=== PATIENT | male | born 1935 | race Caucasian/White ===

== ENCOUNTER → 2016-06-22 10:56 | Outpatient (CLI) | payer MEDICARE, BC ==
[2015-06-07 07:26] VITALS: BMI 36.5
[~2016-06-22 10:56] MED LIST: ATIVAN0.5 MG OR; BETAPACE 120 M120 MG PO; CARDURA8 MG PO; DILANTIN100 MG PO; FERROUS SULFAT325 MG PO; FISH OIL 1,0001 CA1 PO; GLIMEPIRIDE1 MG PO; GLUCOPHAGE1000 MG PO; GLUCOPHAGE850 MG PO; HYDROCHLOROTH12.5 M1 PO; LAMICTAL XR200 MG PO; LOTENSIN40 MG PO; NORCO 10/325 TA1 TA1 OR; NORCO 10/325 TA1 TA1 PO; NORVASC10 MG PO; OXYCONTIN10 MG PO; PLAVIX75 MG PO; PRAVACHOL40 MG PO; PRESERVISION AR1 CAP PO; PRILOSEC20 MG PO; REGLAN10 MG PO; VITAMIN B-121000 MC3 GT; VITAMIN B-121000 MCG PO; XARELTO10 MG PO
== END | disposition home or self-care (01) ==
LOC: D.CT 10:56
DX: S76.191A Other specified injury of right quadriceps muscle, fascia and tendon, initial encounter (principal)

== ENCOUNTER → 2017-01-03 08:21 | Outpatient (CLI) | payer MEDICARE, BC ==
[2015-06-07 07:26] VITALS: BMI 36.5
[~2017-01-03 08:21] MED LIST changes: +FERRETTS324 MG PO; +GLIMEPIRIDE4 MG PO; +LAMICTAL ODT200 MG PO; +PERCOCET 10/3251 TA1 PO; +PROTONIX40 MG PO; +XARELTO15 MG PO
== END | disposition home or self-care (01) ==
LOC: D.RAD 08:21
DX: M25.512 Pain in left shoulder (principal)

== ENCOUNTER 2017-01-21 05:28 | Day surgery (SDC) | payer MEDICARE, BC ==
[2017-01-18 12:58] LABS: HEMOGLOBIN 14.4 g/dL (13.5-17.5); MCH 30.1 pg (26.0-34.0); MCHC 35.1 g/dL (31.0-37.0); MCV 85.8 fL (80.0-100.0); MEAN PLATELET VOLUME 9.6 fL (7.4-10.4); RBC 4.78 10x6/uL (4.20-6.10); RDW 13.5 % (11.5-14.5); WBC 5.5 10x3/uL (4.8-10.8)
[2017-01-18 13:00] LABS: ANION GAP 9.5 mmol/L (8-16); CALCIUM 9.1 mg/dL (8.5-10.1); CARBON DIOXIDE 30.4 mmol/L (21.0-32.0); CREATININE - SERUM 1.4 mg/dL (0.6-1.3); POTASSIUM - SERUM 3.9 mmol/L (3.5-5.1)
[~2017-01-21 05:28] MED LIST changes: -FERRETTS324 MG PO; -GLIMEPIRIDE4 MG PO; -LAMICTAL ODT200 MG PO; -PERCOCET 10/3251 TA1 PO; -PROTONIX40 MG PO
[2017-01-21] MEDS ORDERED: PERCOCET 10/3251 TA1 PO ×2 (07:32→13:58)
[2017-01-21] MEDS ORDERED: HYDROCHLOROTH12.5 M1 PO (10:03)
[2017-01-21] MEDS ORDERED: LOTENSIN40 MG PO (10:04)
[2017-01-21] MEDS ORDERED: CARDURA8 MG PO (10:04)
[2017-01-21] MEDS ORDERED: NORVASC10 MG PO (10:04)
[2017-01-21] MEDS ORDERED: FISH OIL 1,0001 CA1 PO (10:05)
[2017-01-21] MEDS ORDERED: FERRETTS324 MG PO (10:05)
[2017-01-21] MEDS ORDERED: GLUCOPHAGE1000 MG PO (10:06)
[2017-01-21] MEDS ORDERED: GLIMEPIRIDE4 MG PO (10:06)
[2017-01-21] MEDS ORDERED: LAMICTAL ODT200 MG PO (10:06)
[2017-01-21] MEDS ORDERED: VITAMIN B-121000 MCG PO (10:07)
[2017-01-21] MEDS ORDERED: PROTONIX40 MG PO (10:07)
[2017-01-21] MEDS ORDERED: PRAVACHOL40 MG PO (10:07)
[2017-01-21] MEDS ORDERED: XARELTO10 MG PO (10:08)
[2017-01-21 10:19] VITALS: BP 155/87; BMI 35.9
--- NOTE | 2017-01-21 10:48 | NUR ---
DR. WHITLEY ADVISED OF FSBS. NO ORDERS.
--- NOTE | 2017-01-21 13:24 | NUR ---
OPENED AT 1327
--- NOTE | 2017-01-21 15:49 | OP ---
PATIENT NAME: DIONY FOUNTAIN MEDICAL RECORD: [id number] :37 LOCATION:[facility] ADMISSION DATE: SURGEON: CISCO HALL MD DATE OF OPERATION: 01/21/2017 PREOPERATIVE DIAGNOSES: 1. Impingement syndrome of the left shoulder. 2. Rotator cuff tear of the left shoulder. 3. Acromioclavicular arthritis of the left shoulder. POSTOPERATIVE DIAGNOSES: 1. Impingement syndrome of the left shoulder. 2. Rotator cuff tear of the left shoulder. 3. Acromioclavicular arthritis of the left shoulder. PROCEDURES: 1. Rotator cuff repair of the left shoulder. 2. Arthroscopic subacromial decompression, acromioplasty and bursectomy. 3. Arthroscopic distal clavicle excision done through separate incision - 1 cm. SURGEON: Cisco Hall MD ANESTHESIA: General. INTRAOPERATIVE COMPLICATIONS: None. SUMMARY OF PATHOLOGIC FINDINGS: The patient had a very large retracted rotator cuff tear, mostly in the posterior aspect of the supraspinatus tendon that required multiple anchor fixation. OPERATIVE SUMMARY IN DETAIL: After obtaining the appropriate preoperative orthopedic surgery consent as well as anesthetic consultation, evaluation and clearance, the patient was brought to the operating room and placed on the operating table in supine position. After adequate general laryngeal mask airway anesthesia was administered, the patient was placed in a right lateral decubitus position. All pressure points were well padded to include down leg peroneal pad as well as axillary roll. The patient was held firmly to the operating table using the vacuum pack suction system. The patient's left upper extremity and shoulder were prepped and draped in routine sterile fashion. The arm was held in the Arthrex traction boom at 30 degrees of forward flexion, 30 degrees of abduction with 10 pounds of traction laterally. Arthroscopy was established in the glenohumeral joint from a posterior portal. Anterior portal was established in the anterior safe interval. Diagnostic arthroscopy revealed the above findings. 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 Attention was then turned to the subacromial space. While on subacromial space, a denude the undersurface of the acromion was followed by a subacromial decompression to the level of the distal clavicle. A separate anterior incision distal clavicle was resected for just over 1 cm. Having completed this, attention was turned to the rotator cuff tear. Accessory lateral portal was elongated for better visualization and mobilization of the rotator cuff was then followed by a combination of [id number] repair from the posterior part of the supraspinatus to the mid substance tear of the supraspinatus. It was then further carried out anteriorly where two 5.5 OPERATIVE REPORT [id number] DIONY FOUNTAINocks were utilized for reapproximation back over the supraspinatus tendinous footprint. This was done using FiberTape. Good reapproximation and coverage was achieved. Wound was copiously irrigated and closed in usual fashion. Sterile dressings were applied. The patient was awakened and taken to recovery in stable condition. All final needle and sponge counts were correct. TRANSINT:[id number] Voice Confirmation ID: [id number] DOCUMENT ID: [id number] RAFAEL ABURTO, CISCO BAEZ at 1549 CC: [id number] DICTATION DATE: 01/21/17 1359 GAS DISPATCHER: 01/21/17 1546 REG [facility] [address] [place] [address]
--- NOTE | 2017-01-21 15:59 | NUR ---
1540- IV D/C'D, PT TOLERATED. CATHETER INTACT. 1545- DISCHARGE INSTRUCTIONS COMPLETED. PT VERBALIZED UNDERSTANDING. PAPERWORK SIGNED. 1550- PT DISCHARGED VIA WHEELCHAIR WITH SON.
== END 2017-01-21 15:50 | disposition home or self-care (01) ==
LOC: D.OPS 05:28 → D.PAN 11:15 → D.OPS 11:15
PROVIDERS: Anesthesiology
DX: M75.102 Unspecified rotator cuff tear or rupture of left shoulder, not specified as traumatic (principal); I48.91 Unspecified atrial fibrillation; E11.9 Type 2 diabetes mellitus without complications; K21.9 Gastro-esophageal reflux disease without esophagitis; Z01.812 Encounter for preprocedural laboratory examination

== ENCOUNTER → 2017-05-27 09:12 | Outpatient (CLI) | payer MEDICARE, BC ==
[~2017-05-27 09:12] MED LIST changes: +DILAUDID4 MG PO; +FERRETTS324 MG PO; +GLIMEPIRIDE4 MG PO; +HYDROCHLOROTHIA25 MG PO; +LAMICTAL ODT200 MG PO; +OMEPRAZOLE20 M1 PO; +PERCOCET 10/3251 TA1 PO; +PROTONIX40 MG PO; +TRADJENTA5 MG PO; +TRESIBA FL100 UNIT/1 SC
== END | disposition home or self-care (01) ==
LOC: D.RAD 05-24 10:00 → D.CT 05-24 11:00 → D.RAD 09:12
DX: M25.512 Pain in left shoulder (principal)

== ENCOUNTER 2017-06-12 05:20 | Day surgery (SDC) | payer MEDICARE, BC ==
[2017-06-11 09:32] LABS: BASOPHILS 0.5 % (0-2); EOSINOPHILS 3.1 % (0-7); HEMATOCRIT 38.6 % (42.0-54.0); HEMOGLOBIN 13.5 g/dL (13.5-17.5); IMMATURE GRANULOCYTES 0.2 % (0-5); LYMPHOCYTES 23.5 % (15-50); MCH 29.1 pg (26.0-34.0); MCV 83.2 fL (80.0-100.0); MEAN PLATELET VOLUME 9.3 fL (7.4-10.4); MONOCYTES 10.6 % (2-11); NEUTROPHILS 62.1 % (40-80); PLATELET COUNT 134 10x3/uL (130-400); RBC 4.64 10x6/uL (4.20-6.10); RDW 14.2 % (11.5-14.5); WBC 4.3 10x3/uL (4.8-10.8)
[2017-06-11 09:40] LABS: ANION GAP 15.4 mmol/L (8-16); CALCIUM 8.7 mg/dL (8.5-10.1); CARBON DIOXIDE 27.2 mmol/L (21.0-32.0); CREATININE - SERUM 1.3 mg/dL (0.6-1.3); POTASSIUM - SERUM 3.6 mmol/L (3.5-5.1)
[~2017-06-12] VITALS: Ht 177.8 cm; Wt 115.2 kg
--- NOTE | ~2017-06-12 | OP ---
PATIENT NAME: DIONY FOUNTAIN MEDICAL RECORD: [id number] :37 LOCATION:[facility] ADMISSION DATE: SURGEON: CISCO HALL MD DATE OF OPERATION: 06/12/2017 PREOPERATIVE DIAGNOSES: Rotator cuff tear, chronic with biceps tendinitis. PREOPERATIVE DIAGNOSES: Rotator cuff tear, chronic with biceps tendinitis. PROCEDURES: 1. Superior capsular reconstruction of the left shoulder. 2. Biceps tenodesis of the left shoulder. SURGEON: Cisco Hall MD ANESTHESIA: General. INTRAOPERATIVE COMPLICATIONS: None. SUMMARY OF PATHOLOGIC FINDINGS: The patient had a completely torn retracted rotator cuff tear beyond the glenoid. The infraspinatus was fine. The subscapularis was completely torn and retracted as well. SCR was done with posterior and anterior stabilization. OPERATIVE SUMMARY IN DETAIL: After obtaining the appropriate preoperative orthopedic surgery consent as well as anesthetic consultation, evaluation and clearance, the patient was brought to the operating room and placed on the operating table in supine position. After general laryngeal mask airway was administered, the patient was placed in the beach chair position. All pressure points were well padded. He was held firmly to the operating table using the vacuum pack suction system. Left upper extremity and shoulder were then prepped and draped in a routine sterile fashion. A lateral incision was made over the anterolateral aspect of the acromion and the periosteal sleeve taken down and the rotator cuff tear as noted above was seen. At this point, the decision was made to go from a large rotator cuff repair to an SCR. The superior aspect of the glenoid cleaned off the biceps tendon was released and saved for later tenodesis. Three 3.0 SutureTak were placed in the superior aspect of the glenoid. The 3-mm graft was appropriately measured and cut to size. It was then placed across the superior aspect of the glenoid and tied at 3 points of fixation using the SutureTak laden with FiberWire. Having completed this, the shoulder was then placed in a 30 degree angle position with slight traction and the lateral aspect of the graft for the SCR was secured with SpeedBridge with FiberTape. Accessory graft was removed at this time. The subscapularis was then reapproximated to the graft with Ethibond and Vicryl. At this point, the biceps tendon was then sutured to the anterior medial aspect of the graft to give the patient more graft stability as the subscapularis was not available for reapproximation anteriorly. Having completed this, wound was copiously irrigated. The deltoid was reapproximated in an imbricated djyqe-tzaa-[id number] style suture to the acromion in a transosseous fashion using #5 Ethibond. The #2 Ethibond was then utilized to close the deep deltoid fascia. This was followed by #1 Vicryl, 2-0 Vicryl and skin rigoberto. Sterile dressings were applied. The patient was placed in an abduction pillow splint. Having completed this, patient was awakened and taken to recovery room in stable condition. All final needle and sponge counts were correct. OPERATIVE REPORT [id number] DIONY FOUNTAIN TRANSINT:[id number] Voice Confirmation ID: [id number] DOCUMENT ID: [id number] RAFAEL ABURTO, CISCO BAEZ at 1401 CC: [id number] DICTATION DATE: 06/12/17 0938 SEWER BUILDER: 06/12/17 1020 REG [place] [id number] [place] [id number]
[~2017-06-12 05:20] MED LIST changes: -DILAUDID4 MG PO
[2017-06-12 06:48] VITALS: Ht 177.8 cm; Wt 115.2 kg
[2017-06-12] MEDS ORDERED: DILAUDID4 MG PO (09:34)
== END 2017-06-12 11:30 | disposition home or self-care (01) ==
LOC: D.OPS 05:20 → D.PAN 12:00 → D.OPS 12:00
PROVIDERS: Anesthesiology
DX: M75.122 Complete rotator cuff tear or rupture of left shoulder, not specified as traumatic (principal); M65.812 Other synovitis and tenosynovitis, left shoulder; I10 Essential (primary) hypertension; E11.9 Type 2 diabetes mellitus without complications; G47.30 Sleep apnea, unspecified; K21.9 Gastro-esophageal reflux disease without esophagitis; M19.90 Unspecified osteoarthritis, unspecified site; Z01.812 Encounter for preprocedural laboratory examination